=== PATIENT | female | born 2005 | race African-American/Black ===

== ENCOUNTER 2023-07-16 23:39 | Emergency (ER) | payer OTHER ==
[2023-07-17 00:01] VITALS: BP 141/90; PULSE 102; RESP 16; TEMP 98.3
--- NOTE | 2023-07-17 00:16 | ED ---
Wound/Laceration HPI - General Chief Complaint: Wound/Laceration Stated Complaint: FINGER LACERATION Time Seen by Provider: 07/16/23 23:48 Source: patient Mode of arrival: ambulatory Limitations: no limitations - History of Present Illness Initial Comments: 17-year-old female presenting with chief complaint of laceration. Patient sustained a laceration to the right fifth digit while cutting a rachel with a kitchen knife. Her tetanus is up-to-date. She has full range of motion and sensation. Bleeding is well-controlled. - Related Data Home Medications Medication Instructions Recorded Confirmed No Known Home Medications 07/16/23 07/16/23 Allergies Allergy/AdvReac Type Severity Reaction Status Date / Time No Known Allergies Allergy Verified 07/16/23 23:50 Review of Systems ROS Statement: Those systems with pertinent positive or pertinent negative responses have been documented in the HPI. ROS Other: All systems not noted in ROS Statement are negative. Past Medical History Past Medical History: No Reported History History of Any Multi-Drug Resistant Organisms: None Reported Past Surgical History: No Surgical Hx Reported Past Psychological History: No Psychological Hx Reported Smoking Status: Never smoker Past Alcohol Use History: None Reported Past Drug Use History: None Reported General Exam Limitations: no limitations General appearance: alert, in no apparent distress Head exam: Present: atraumatic, normocephalic Eye exam: Present: normal appearance Neck exam: Present: normal inspection Respiratory exam: Absent: respiratory distress Neurological exam: Present: alert, oriented X3 Expanded Type of lesion: Present: laceration (2cm right fifth digit) Course Vital Signs 07/16/23 23:46 Temperature 98.3 F Pulse Rate 102 H Respiratory 16 Rate Blood Pressure 141/90 O2 Sat by Pulse 99 Oximetry Procedures - Laceration Laceration #1 Consent Obtained: verbal consent Indication: laceration Site: hand (Right fifth digit) Size (cm): 2 Description: linear Depth: simple, single layer Size of Sutures: other (exofin) Patient Tolerated Procedure: well Medical Decision Making - Medical Decision Making Was pt. sent in by a medical professional or institution (, PA, SLAB MILLER OPERATOR, urgent care, hospital, or detention...) When possible be specific @ -No Did you speak to anyone other than the patient for history (EMS, parent, family, police, friend...)? What history was obtained from this source @ -No Did you review nursing and triage notes (agree or disagree)? Why? @ -I reviewed and agree with nursing and triage notes Were old charts reviewed (outside hosp., previous admission, EMS record, old EKG, old radiological studies, urgent care reports/EKG's, detention records)? Report findings @ -No old charts were reviewed Differential Diagnosis (chest pain, altered mental status, abdominal pain women, abdominal pain men, vaginal bleeding, weakness, fever, dyspnea, syncope, headache, dizziness, GI bleed, back pain, seizure, CVA, palpatations, mental health, musculoskeletal)? @ -Not applicable EKG interpreted by me (3pts min.). @ -As above X-rays interpreted by me (1pt min.). @ -None done CT interpreted by me (1pt min.). @ -None done U/S interpreted by me (1pt. min.). @ -None done What testing was considered but not performed or refused? (CT, X-rays, U/S, labs)? Why? @ -None What meds were considered but not given or refused? Why? @ -None Did you discuss the management of the patient with other professionals (professionals i.e. , PA, SLAB MILLER OPERATOR, lab, RT, psych nurse, social worker clinical, radio interference investigator, teacher, air defence officer, pillowcase cleaner)? Give summary @ -No Was smoking cessation discussed for >3mins.? @ -No Was critical care preformed (if so, how long)? @ -No Were there social determinants of health that impacted care today? How? (Homelessness, low income, unemployed, alcoholism, drug addiction, transportation, low edu. Level, literacy, decrease access to med. care, fpc, rehab)? @ -No Was there de-escalation of care discussed even if they declined (Discuss DNR or withdrawal of care, Hospice)? DNR status @ -No What co-morbidities impacted this encounter? (DM, HTN, Smoking, COPD, CAD, Cancer, CVA, ARF, Chemo, Hep., AIDS, mental health diagnosis, sleep apnea, morbid obesity)? @ -None Was patient admitted / discharged? Hospital course, mention meds given and route, prescriptions, significant lab abnormalities, going to OR and other pertinent info. @ -17-year-old female presenting with chief complaint of laceration to the right fifth digit. She excellently cut the finger with a kitchen knife while cutting a rachel at home. Tetanus is up-to-date. Small 2 cm laceration to the anterior surface of the fingers noted. She is neurovascularly intact. Bleeding is well-controlled. Laceration is repaired using Exofin. Patient educated on wound care and signs of infection. Discharged home. Follow-up with PCP. Report back to ER with any new or worsening symptoms. Discussed return parameters and answered all questions. Patient conveyed verbal understanding and agreed to the plan. I discussed this case in detail with my attending Dr. Phillip Undiagnosed new problem with uncertain prognosis? @ -No Drug Therapy requiring intensive monitoring for toxicity (Heparin, Nitro, Insulin, Cardizem)? @ -No Were any procedures done? @ -Laceration repair Diagnosis/symptom? @ -Laceration Acute, or Chronic, or Acute on Chronic? @ -Acute Uncomplicated (without systemic symptoms) or Complicated (systemic symptoms)? @ -Uncomplicated Side effects of treatment? @ -No Exacerbation, Progression, or Severe Exacerbation? @ -No Poses a threat to life or bodily function? How? (Chest pain, [place], [place], pneumonia, PE, COPD, DKA, ARF, appy, cholecystitis, CVA, Diverticulitis, Homicidal, Suicidal, threat to staff... and all critical care pts) @ -No Disposition Clinical Impression: Laceration Disposition: HOME SELF-CARE Condition: Good Instructions (If sedation given, give patient instructions): Finger Laceration (ED), Skin Adhesive Care (ED) Additional Instructions: Follow-up with PCP. Report back to ER with any new or worsening symptoms. Monitor for signs of infection, including but not limited to redness, swelling, pain, discharge, fever, chills. Keep the wound clean and dry and covered. Avoid fully submerging the wound. Clean with soap and water. Do not apply Neosporin or other ointment-based products as this will break down the skin adhesive. Is patient prescribed a controlled substance at d/c from ED?: No Referrals: Mynor Vargas MD [Primary Care Provider] - 1-2 days Time of Disposition: 00:28
[2023-07-17] MEDS: TOPICAL SKIN ADHESIVE 1 EACH AMP TOPICAL ONE (00:27)
== END 2023-07-17 00:40 | disposition home or self-care (01) ==
LOC: EC 23:39
DX: S61.216A Laceration without foreign body of right little finger without damage to nail, initial encounter (principal); W26.0XXA Contact with knife, initial encounter
CPT/HCPCS: 12001; 99282

== ENCOUNTER 2023-11-28 14:16 | Outpatient (CLI) | payer OTHER ==
[2023-11-28 17:59] VITALS: BP 129/83; PULSE 109; RESP 18; TEMP 98.2
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
== END 2023-11-28 17:48 | disposition home or self-care (01) ==
LOC: FBPOP 14:16
PROVIDERS: ATTEND Obstetrics & Gynecology Obstetrics
DX: O99.352 Diseases of the nervous system complicating pregnancy, second trimester (principal); G89.11 Acute pain due to trauma; Z3A.24 24 weeks gestation of pregnancy
CPT/HCPCS: 99213

== ENCOUNTER 2024-02-16 00:01 | Outpatient (CLI) | payer OTHER ==
[2024-02-16 00:57] VITALS: BP 123/64; PULSE 112; RESP 16; TEMP 96.9
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
== END 2024-02-16 00:50 | disposition home or self-care (01) ==
LOC: FBPOP 00:01
PROVIDERS: ATTEND Obstetrics & Gynecology
CPT/HCPCS: 59025; 99213